=== PATIENT | male | born 1995 | race Caucasian/White ===

== ENCOUNTER 2023-09-03 19:17 | Emergency (ER) | payer OTHER ==
[~2023-09-03] VITALS: Ht 188 cm; Wt 95.9 kg
[2023-09-03 21:17] LABS: Trichomonas vaginalis (AMP) NOT DETECTED (NEGATIVE)
[2023-09-03 21:41] LABS: GC DNA AMPLIFICATION NEGATIVE (NEGATIVE)
[2023-09-04] MEDS ORDERED: LEVO1TAB39 PO (01:36)
[2023-09-04 02:02] VITALS: BP 131/74; TEMP 98.1; O2SAT 100
[2023-09-04] MEDS: LevoFLOXacin 500 MG TABLET PO ONE (02:03)
== END 2023-09-04 02:05 | disposition home or self-care (01) ==
LOC: M ED 19:17
DX: N45.1 Epididymitis (principal); Z79.2 Long term (current) use of antibiotics